=== PATIENT | male | born 1980 ===

== ENCOUNTER 2021-05-18 11:39 | Outpatient (CLI) | payer OTHER, SELFPAY ==
[2021-05-18 19:21] LABS: Hemoglobin 15.9 g/dL (14.0-18.0); Mean Corpuscular HGB Conc 33.1 g/dl (32-36); Mean Corpuscular Hemoglobin 31.9 pg (26-34); Mean Corpuscular Volume 96.4 fl (80-100); Mean Platelet Volume 10.5 fl (7.4-10.4); Platelet Count Result 325 k/mm3 (150-375); Red Blood Count 4.98 M/mm3 (4.6-6.20); Red Cell Distribution Width 13.2 % (11.5-14.5)
[2021-05-18 19:24] LABS: Add Urine Microscopic? NO; Appearance Urine Clear (Clear); Bilirubin Urine Negative (Negative); Blood Urine Negative (Negative); Color Urine Straw (Yellow); Glucose Urine UA Negative (Negative); Ketones Urine Negative (Negative); Leukocyte Esterase Ur Negative LEU/UL (NEGATIVE); Nitrate Urine Negative (Negative); Protein Urine Negative (Negative); Specific Grav Ur 1.011 (1.001-1.035); Urobilinogen Urine Negative mg/dL (<2.0)
[2021-05-18 20:11] LABS: Alanine Aminotransferase 50 U/L (4-50); Albumin Level 5.1 g/dL (3.5-5.1); Alkaline Phosphatase 100 U/L (38-126); Anion Gap 11 mmol/L (8-16); Aspartate Amino Transferase 38 U/L (17-59); Bilirubin,Total 0.3 mg/dL (0.2-1.3); Blood Urea Nitrogen 18 mg/dL (9-20); Carbon Dioxide 26 mmol/L (22-30); Chloride 101 mmol/L (98-107); Cholesterol 218 mg/dL (0-200); Estimated Glomerular Filt Rate > 60; Glucose 99 mg/dL (65-110); HDL Direct 47 mg/dL; Potassium 4.5 mmol/L (3.4-5.0); Sodium 138 mmol/L (137-145); Triglycerides 85 mg/dL (<150)
[2021-05-18 20:23] LABS: LDL Cholesterol Direct 153 mg/dL
[2021-05-18 20:42] LABS: Prostate Specific Antigen 1.7 ng/mL (< OR = 4.0)
== END 2021-05-18 11:40 | disposition home or self-care (01) ==
LOC: ANHBWCLAB 11:41
PROVIDERS: PCP Family Medicine; Visit Provider Family Medicine
DX: N50.819 Testicular pain, unspecified (principal); N50.89 Other specified disorders of the male genital organs; Z00.00 Encounter for general adult medical examination without abnormal findings; R39.11 Hesitancy of micturition
CPT/HCPCS: 36415; 80053; 80061; 81003; 84153; 85027; 87086; G0103

== ENCOUNTER 2021-05-25 10:07 | Outpatient (CLI) | payer OTHER, SELFPAY ==
--- NOTE | ~2021-05-25 | US_ITS ---
US scrotum doppler INDICATION: Left groin pain TECHNIQUE: Testicular sonogram utilizing grayscale and color Doppler FINDINGS: The testes are normal in size and appearance. No focal lesions are seen. The right testes measures 5 x 2.4 x 2.8 centimeters, and the left testis measures 4.2 x 2.1 x 3.1 cm. There is normal vascular flow to both testes. There is a cyst inferior to the left testicle measuring 1.3 cm, possibly epididymal. There is a small left hydrocele. IMPRESSION: 1. Small left hydrocele. 2: Benign-appearing 1.3 cm cyst inferior to the left testicle, possibly epididymal. Reviewed, dictated and finalized at location A. UNT RECEIVABLE ASSOCIATE IMPRESSION: 1. Small left hydrocele. 2: Benign-appearing 1.3 cm cyst inferior to the left testicle, possibly epidid ymal.
--- NOTE | ~2021-05-25 | US_ITS ---
US soft tissue groin LT 05/25/2021 10:52 Indication: Left groin abnormality Procedure: High-resolution ultrasound of the left groin Comparison: No prior studies for comparison. Findings: Normal heterogeneous soft tissue in the left groin. No discrete fluid collection or mass. N o evidence for hernia. Impression: 1: Normal soft tissue ultrasound of the left groin. Reviewed, dictated and finalized at location A. 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
== END 2021-05-25 10:08 | disposition home or self-care (01) ==
LOC: ANHIMG 10:13
PROVIDERS: PCP Family Medicine; Visit Provider Family Medicine
DX: N50.89 Other specified disorders of the male genital organs (principal); N43.3 Hydrocele, unspecified
CPT/HCPCS: 76870; 76882; 93976

== ENCOUNTER 2021-09-02 10:51 | Outpatient (CLI) | payer OTHER, SELFPAY ==
--- NOTE | ~2021-09-02 | XR_ITS ---
XR thoracic spine 3V DATE: 09/02/2021 11:15 INDICATION: Thoracic spine pain TECHNIQUE: AP, lateral, swimmer views COMPARISON: None FINDINGS: There is slight dextroscoliosis of the lumbar spine. Moderately severe degenerative disc disease and minimal retrolisthesis at C5-6. No fracture or dislocation or bone destruction of the thoracic spine. The thoracic pedicles are intac t. IMPRESSION: Slight dextroscoliosis and minimal degenerative change of the thoracic spine Reviewed, dictated and finalized at location A. IMPRESSION: Slight dextroscoliosis and minimal degenerative change of the thora cic spine
--- NOTE | ~2021-09-02 | XR_ITS ---
XR lumbar spine min 4V DATE: 09/02/2021 11:14 INDICATION: Low back pain TECHNIQUE: AP, lateral, coned lateral lumbosacral and bilateral oblique views COMPARISON: None FINDINGS: There is mild levoscoliosis. Normal alignment of the lumbar spine. No fracture or bone dest ruction, spondylolysis or spondylolisthesis. Lumbar and lumbosacral interspaces are well preserved. T he sacroiliac joints appear normal. IMPRESSION: Mild levoscoliosis; otherwise negative Reviewed, dictated and finalized at location A.
== END 2021-09-02 10:52 | disposition home or self-care (01) ==
LOC: ANHBWCIMG 10:52
PROVIDERS: PCP Family Medicine; Visit Provider Family Medicine
DX: M47.813 Spondylosis without myelopathy or radiculopathy, cervicothoracic region (principal); M54.50 Low back pain, unspecified; M41.9 Scoliosis, unspecified
CPT/HCPCS: 72072; 72110

== ENCOUNTER 2021-10-12 08:25 | Outpatient (CLI) | payer OTHER, SELFPAY ==
--- NOTE | ~2021-10-12 | XR_ITS ---
EXAMINATION: XR chest 2V 10/12/2021 08:34 INDICATION: Acute respiratory infection PROCEDURE: 2 view chest COMPARISON: No prior studies for comparison. FINDINGS: The lungs are clear. The cardiomediastinal silhouette is within normal limits. There are no pleural effusions. There is no pneumothorax suspected. IMPRESSION: 1: NO ACUTE CARDIOPULMONARY DISEASE. Reviewed, dictated and finalized at location A.
== END 2021-10-12 08:26 | disposition home or self-care (01) ==
PROVIDERS: PCP Family Medicine; Visit Provider Family Medicine
DX: J06.9 Acute upper respiratory infection, unspecified (principal); T78.40XA Allergy, unspecified, initial encounter
CPT/HCPCS: 71046

== ENCOUNTER 2022-02-02 07:54 | Outpatient (CLI) | payer OTHER, SELFPAY ==
--- NOTE | ~2022-02-02 | XR_ITS ---
EXAMINATION: XR chest 2V Exam Date/Time: 02/02/2022 13:05 CDT HISTORY: R07.89 - Other chest pain Comparison: None available 10/12/2021. RESULT: Lines, tubes, and devices: None. Lungs and pleura: Clear. Cardiomediastinal silhouette: Stable. Other: No acute osseous or upper abdominal finding. IMPRESSION: No acute cardiopulmonary process. Reviewed, dictated and finalized at location K.
[2022-02-02 18:58] LABS: Hematocrit 44.6 % (42.0-52.0); Hemoglobin 15.1 g/dL (14.0-18.0); Mean Corpuscular HGB Conc 33.9 g/dl (32-36); Mean Corpuscular Hemoglobin 31.4 pg (26-34); Mean Corpuscular Volume 92.7 fl (80-100); Mean Platelet Volume 10.5 fl (7.4-10.4); Platelet Count Result 313 k/mm3 (150-375); Red Blood Count 4.81 M/mm3 (4.6-6.20); Red Cell Distribution Width 12.7 % (11.5-14.5); White Blood Count 8.7 K/mm3 (4.5-10.0)
[2022-02-02 19:55] LABS: Alanine Aminotransferase 28 U/L (6-50); Albumin Level 5.2 g/dL (3.5-5.1); Alkaline Phosphatase 69 U/L (38-126); Anion Gap 4 mmol/L (8-16); Aspartate Amino Transferase 52 U/L (17-59); Bilirubin,Total 0.5 mg/dL (0.2-1.3); Blood Urea Nitrogen 15 mg/dL (9-20); Calcium 9.1 mg/dL (8.4-10.2); Carbon Dioxide 30 mmol/L (22-30); Chloride 98 mmol/L (98-107); Creatine Kinase 108 U/L (55-170); Estimated Glomerular Filt Rate > 60; Glucose 139 mg/dL (65-110); Potassium 3.8 mmol/L (3.4-5.0); Sodium 132 mmol/L (137-145)
[2022-02-02 20:18] LABS: Troponin I < 0.012 ng/mL (0.000-0.034)
== END 2022-02-02 07:55 | disposition home or self-care (01) ==
PROVIDERS: PCP Family Medicine; Visit Provider Family Medicine
DX: R07.89 Other chest pain (principal)
CPT/HCPCS: 36415; 71046; 80053; 82550; 84484; 85027

== ENCOUNTER 2022-04-07 15:05 | Outpatient (CLI) | payer OTHER, SELFPAY ==
[2022-04-07 18:40] LABS: Appearance Urine Clear (Clear); Bilirubin Urine Negative (Negative); Blood Urine Negative (Negative); Color Urine Yellow (Yellow); Glucose Urine UA Negative (Negative); Ketones Urine Negative (Negative); Leukocyte Esterase Ur Negative LEU/UL (NEGATIVE); Nitrate Urine Negative (Negative); Protein Urine Negative (Negative); Specific Grav Ur >= 1.030 (1.001-1.035); Urobilinogen Urine 0.2 mg/dL (<2.0); pH Urine 5.5 (5.0-9.0)
[2022-04-07 18:44] LABS: Add Urine Microscopic? NO
== END 2022-04-07 15:06 | disposition home or self-care (01) ==
LOC: ANHBWCLAB 15:07
PROVIDERS: PCP Family Medicine; Visit Provider Family Medicine
DX: Z20.2 Contact with and (suspected) exposure to infections with a predominantly sexual mode of transmission (principal)
CPT/HCPCS: 81003; 87491; 87591; 87661; 87808

== ENCOUNTER 2022-12-14 07:23 | Outpatient (CLI) | payer OTHER, SELFPAY ==
--- NOTE | 2022-12-14 | EST_ITS ---
Patient Info Name: Jacoby Jasso Age: 42 years : 1980 Gender: Male Ht: 71 in Wt: 170 lbs BSA: 1.97 m2 HR: 55 bpm BP: 132 / 72 mmHg Heart Rhythm: Sinus Rhythm Exam Date: 12/14/2022 9:40 AM Exam Location: [facility] Stress Patient Status: Outpatient Admit Date: 12/14/2022 Staff Ordering Physician: Danny Webber DO Attending Provider: Danny Webber DO Exercise Technologist: Ros Dobbins CT Exercise Physician: Danny Webber DO Exam Type: CA stress syeda w NM Study Info Indications R07.9 - Chest pain, unspecified A regadenoson stress test was performed. Summary 1. 1. Negative lexiscan stress test for ischemic ST changes by ECG criteria. 2. 2. Stable hemodynamics throughout the test. 3. 3. Nuclear scan to follow and will be reported separately. Please correlate with it. 4. 4. Patient informed of the above results. Protocol: Lexiscan Stress ECG Details Stage: REST Duration (min): 1 min : 0 sec HR (bpm): 55 SBP (mmHg): 132 DBP (mmHg): 72 Stage: REST Duration (min): 25 min : 27 sec HR (bpm): 60 SBP (mmHg): 132 DBP (mmHg): 72 Stage: STAGE 1 Duration (min): 1 min : 0 sec HR (bpm): 87 SBP (mmHg): 116 DBP (mmHg): 69 Stage: RECOVERY Duration (min): 1 min : 0 sec HR (bpm): 93 SBP (mmHg): 116 DBP (mmHg): 69 Stage: RECOVERY Duration (min): 2 min : 0 sec HR (bpm): 82 SBP (mmHg): 116 DBP (mmHg): 69 Stage: RECOVERY Duration (min): 2 min : 58 sec HR (bpm): 80 SBP (mmHg): 130 DBP (mmHg): 72 Rest HR: 60 bpm Peak HR: 94 bpm Rest Sys BP: 132 mmHg Peak Sys BP: 130 mmHg Max Pred HR: 177 bpm % Max Pred HR: 53 % Target HR: 150 bpm Max RPP: 12,220 bpm*mmHg Termination Reason: Completed protocol Cardiac Symptoms: Shortness of breath Total Time: 1 min : 0 sec Rest Balderas BP: 72 mmHg Peak Balderas BP: 72 mmHg Total Dose: 0.4 mg Resting ECG Sinus rhythm. Stress ECG No ST changes. Arrhythmias None. Report Signatures
--- NOTE | ~2022-12-14 | NM_ITS ---
EXAMINATION: NM syeda stress w perfusion DATE: 12/14/2022 11:49 INDICATION: Chest pain TECHNIQUE: Rest images were obtained following intravenous administration of 10.5 mCi Tc99m tetrofosm in (Myoview). The patient was infused intravenously with Lexiscan (Regadenoson). Then, 33.7 mCi Tc99m tetrofosmin (Myoview) was administered intravenously, and stress images were obtained. Data was rakesh nstructed into short axis and horizontal and vertical long axis SPECT images. Gated SPECT images were also obtained. COMPARISON: None. FINDINGS: There is no definite reversible or fixed perfusion abnormality to suggest ischemia or infar ction. There is normal left ventricular chamber size, wall motion and ejection fraction. Left ventr icular ejection fraction measures 62%. IMPRESSION: 1. Normal myocardial perfusion at rest and during stress. 2. Left ventricular ejection fraction measuring 62%. Reviewed, dictated and finalized at location A.
--- NOTE | 2022-12-14 07:33 | ECHO_ITS ---
Patient Info Name: Jacoby Jasso Age: 42 years : 1980 Gender: Male Ht: 71 in Wt: 170 lbs BSA: 1.97 m2 HR: 56 bpm BP: 114 / 75 mmHg Heart Rhythm: Sinus Rhythm Technical Quality: Good Exam Date: 12/14/2022 7:57 AM Exam Location: [facility] Patient Status: Outpatient Admit Date: 12/14/2022 Staff Ordering Physician: Danny Webber DO Smoking Pipe Mounter: Meena Turner RDCS Attending Provider: Danny Webber DO Referring Physician: Akbar MILLER; Exam Type: CA echo doppler color flow Study Info Indications R06.09 - Other forms of dyspnea Complete two-dimensional, color flow and Doppler transthoracic echocardiogram is performed. Summary 1. Complete two-dimensional, color flow and Doppler transthoracic echocardiogram is performed. 2. Left ventricular chamber dimension is normal. 3. Left ventricular systolic function is normal, estimated at 60-65%. 4. The left ventricular diastolic function is normal. 5. E/e' 7 is not elevated. 6. No pulmonary hypertension, estimated pulmonary arterial systolic pressure is 18 mmHg. Left Ventricle E/e' 7 is not elevated. Left ventricular chamber dimension is normal. Left ventricular systolic function is normal, estimated at 60-65%. The left ventricular diastolic function is normal. Right Ventricle Right ventricular chamber dimension is normal. Right ventricular systolic function is normal. Left Atria Left atrial chamber dimension is normal. Right Atria Right atrial chamber dimension is normal. Aortic Valve The aortic valve is trileaflet. There is no aortic valve stenosis. There is no aortic valve regurgitation. Pulmonic Valve There is no pulmonic regurgitation. Mitral Valve There is no mitral valve stenosis. There is no mitral valve regurgitation. Tricuspid Valve There is no tricuspid valve regurgitation. No pulmonary hypertension, estimated pulmonary arterial systolic pressure is 18 mmHg. Pericardium/Pleural There is no pericardial effusion. Inferior Vena Cava Normal inferior vena cava with >50% collapse upon inspiration consistent with normal right atrial pressure, 5 mmHg. Aorta The aortic root size at the sinus of Valsalva is normal. Left Ventricular Outflow Tract Name Value Normal LVOT 2D LVOT Diameter 2.0 cm LVOT Doppler LVOT Peak Gradient 3 mmHg LVOT Mean Gradient 2 mmHg LVOT VTI 18 cm LVOT VTI/AV VTI Ratio 0.7 LVOT Stroke Volume 58 ml LVOT CO 3.3 l/min LVOT CI 1.7 l/min/m2 Pulmonic Valve Name Value Normal RVOT Doppler RVOT Peak Gradient 2 mmHg PV Doppler PV Peak Gradient 2 mmHg Mitral Valve
== END 2022-12-14 07:24 | disposition home or self-care (01) ==
PROVIDERS: PCP Family Medicine; Visit Provider Internal Medicine Cardiovascular Disease
DX: R06.09 Other forms of dyspnea (principal)
CPT/HCPCS: 78452; 93017; 93306; A9502; J2785